=== PATIENT | male | born 1995 | race African-American/Black ===

== ENCOUNTER 2016-12-11 16:54 | Emergency (ER) | payer BC, OTHER ==
[~2016-12-11] VITALS: Ht 167.6 cm; Wt 75.0 kg
[2016-12-11 17:04] VITALS: BP 141/71; PULSE 54; TEMP 97.9
== END 2016-12-11 19:18 | disposition home or self-care (01) ==
LOC: COL.ER 16:54
DX: S63.287A Dislocation of proximal interphalangeal joint of left little finger, initial encounter (principal); S62.627A Displaced fracture of middle phalanx of left little finger, initial encounter for closed fracture; X58.XXXA Exposure to other specified factors, initial encounter; Y92.310 Basketball court as the place of occurrence of the external cause